=== PATIENT | female | born 1970 | race Caucasian/White ===

== ENCOUNTER 2025-03-28 10:58 | Emergency (ER) | payer OTHER, SELFPAY ==
[2025-03-28 11:06] VITALS: BP 118/84
[2025-03-28 11:15] VITALS: BMI 23.7
--- NOTE | 2025-03-28 11:18 | ED.GENMED ---
Addendum entered and electronically signed by Dario Rosenthal PA-C 03/31/25 06:22:
On cefdinir, appropriate per C&S
Original Note:
History of Present Illness
General
Chief Complaint: Abdominal Pain
Source: patient
Exam Limitations: none
Time Seen by Provider: 03/28/25 11:11
History of Present Illness
History of Present Illness:
54-year-old otherwise healthy female presents complaining of abdominal pain starting yesterday. The pain has been intermittent since yesterday. She feels as though in the mid abdomen with associated nausea without vomiting. The pain is severe to
the point where she has sweats and chills and near passing out. She has a prior surgical history including cholecystectomy and partial hysterectomy. She does not take any medications regularly. She is not allergic to any medication. She denies
any change in bowel movement. No urinary symptoms. No other complaints
Phy Exam
Physical Exam
Physical Exam:
General: Well-appearing female no acute respiratory distress
HEENT: Normal cephalic atraumatic
Heart: Regular rate and rhythm
Lungs: Clear no wheeze
Abdomen is soft tender to the left lower quadrant mostly on exam. No guarding nondistended
Extremities: No cyanosis
Course
Orders/Labs/Results
Orders:
Orders
03/28/25 11:18
CT Abd/pelvis W Iv Cont Urgent
Comment:
Reason For Exam: llq pain
03/28/25 11:19
Complete Blood Count/With Diff Urgent
Comprehensive Metabolic Panel Urgent
Lipase Urgent
03/28/25 11:58
Urinalysis Reflex To Culture Urgent
Date Specimen was Collected: 03/28/25
Time Specimen was Collected: 11:51
Urine Microscopic Reflex Cult Urgent
Urine Culture Urgent
YAMEL Source: U
Specimen Description:
Date Specimen was Collected: 03/28/25
Time Specimen was Collected: 11:51
Abnormal Lab Results
03/28/25 03/28/25
11:19 11:58
WBC 12.3 H 10^3/uL
(4.8-10.8)
Absolute Neuts (auto) 11.0 H 10^3/uL
(1.4-6.5)
Absolute Lymphs (auto) 0.7 L 10^3/uL
(1.2-3.4)
Neutrophils % 89.3 H %
(42.2-75.2)
Lymphocytes % 5.6 L %
(20.5-51.1)
BUN 22 H mg/dl
(7-17)
Glucose 122 H mg/dl
(70-99)
Ur Occult Blood Reflex 4+ A
(Negative)
Urine Nitrite (Reflex) Positive A
(Negative)
Leukocyte Esterase Rfl 3+ A
(Negative)
Urine Bacteria (Reflex) Many A
(Negative)
03/28/25 11:19
03/28/25 11:19
Vital Signs
Initial and Last Documented VS:
Initial Vital Signs
Temp Pulse Resp BP Pulse Ox
98.0 F 86 16 118/84 98
03/28/25 11:06 03/28/25 11:06 03/28/25 11:06 03/28/25 11:06 03/28/25 11:06
Last Documented Vital Signs
Temp Pulse Resp BP Pulse Ox
98.0 F 75 18 96/56 98
03/28/25 11:06 03/28/25 13:22 03/28/25 13:22 03/28/25 13:22 03/28/25 13:22
MDM/Problems Addressed
Differential Diagnosis Includes:
Patient with abdominal pain since yesterday has been intermittent on exam more tender to the left lower quadrant. Diverticulitis versus constipation versus renal colic versus colitis
Will check labs. CT of the abdomen pending. Offered pain medicine however she declined
*Pulse Oximetry
SaO2: 98
Oxygen Mode of Delivery: Room air
Patient hypoxic: no
*Critical Care Note
Total Time (30-74mins, 75-104mins- exclusive of procedures): Not Applicable
Update Note
Update Note:
CT negative for obvious acute finding. Appendix measures top range of normal at 6 mm in diameter. There is a moderate mount of stool in the ascending colon to suggest constipation. No other infectious process noted. Patient reexamined white
blood cell count is 12. Urinalysis nitrite positive with leukocytes question possible UTI. Will cover for UTI. Explained results of CAT scan the patient return precautions were given. No indication for admission. Stable for discharge
ED Attending Note
-
Portions of this chart may have been created with voice recognition software.� Occasional wrong word or��sound alike� substitutions may have occurred due to the inherent limitations of voice recognition software.
Discharge Plan
Departure
Patient Disposition: Home (Routine Discharge)
Date of Disposition: 03/28/25
Time of Disposition: 13:56
Patient with high blood pressure during this ER visit?: No
Discharge Problem:
Abdominal pain
Instructions: Urinary tract infection in adults - ED (DC), Abdominal Pain
Prescriptions:
New
cefdinir 300 mg capsule
300 mg PO BID Qty: 14 0RF
Referrals:
UNKNOWN - PT DOES,NOT KNOW [Family Provider]
Activity Restrictions/Additional Instructions:
Take antibiotic as directed. Drink plenty of fluids. You may use Tylenol for pain. Return if worse otherwise follow-up with your doctor
Interventions
Interventions:
*Risk Screen - Suicide Last Done: 03/28/25 11:06
*General Assessment Last Done: 03/28/25 11:34
*Neglect/Abuse Screening Last Done: 03/28/25 11:06
*ED- Fall Risk Assessment Last Done: 03/28/25 11:34
*ED COVID-19 Vaccine History Last Done: 03/28/25 11:34
*ED Influenza Vaccine History Last Done: 03/28/25 11:34
OQ-[id number] Assessment Last Done: 03/28/25 11:16
Discharge Date and Time
Print Language: MAORI
[2025-03-28 11:31] LABS: Hematocrit 40.6 % (37.0-47.0); Hemoglobin 13.6 g/dL (12.0-16.0); Mean Corp Hgb Conc. 33.5 g/dL (33.0-37.0); Mean Corpuscular Volume 88.6 fL (81.0-99.0); Nucleated Red Blood Cells % 0 %; Platelet Count 230 10^3/uL (130-400); Red Cell Dist. Width 12.5 % (11.5-14.5)
[2025-03-28 11:53] LABS: ALT (SGPT) 15 U/L (0-35); AST (SGOT) 25 U/L (14-36); Albumin 4.5 g/dl (3.5-5.0); Alkaline Phosphatase 86 U/L (38-126); Blood Urea Nitrogen 22 mg/dl (7-17); Calcium 9.0 mg/dl (8.4-10.2); Carbon Dioxide 30 mmol/L (22-30); Chloride 104 mmol/L (98-107); Estimated Creatinine Clearance 77 ml/min; Glucose 122 mg/dl (70-99); Lipase 85 U/L (23-300); Potassium 4.4 mmol/L (3.5-5.1); Sodium 139 mmol/L (135-145); Total Protein 7.1 g/dl (6.3-8.2); eGFR > 60.00
[2025-03-28 12:09] LABS: Urine Character Clear (Clear)
[2025-03-28 12:13] LABS: Urine Red Blood Cell 0-2 /HPF (0-2); Urine Squamous Cell 21-25 /LPF (Few)
[2025-03-28 13:22] VITALS: BP 96/56
== END 2025-03-28 14:06 | disposition home or self-care (01) ==
LOC: EMR 10:58
PROVIDERS: Physician Assistant; EMERGENCY PHYSICIAN Emergency Medicine
DX: R10.9 Unspecified abdominal pain (principal); Z90.711 Acquired absence of uterus with remaining cervical stump
CPT/HCPCS: 99284; 74177; 80053; 81003; 81015; 83690; 85025; 87077; 87086; 87186; Q9967

== ENCOUNTER 2025-04-18 06:23 | Day surgery (SDC) | payer OTHER, SELFPAY | END 2025-04-18 13:31 | disposition home or self-care (01) | LOC: GI 06:23 | PROVIDERS: ATTENDING PHYSICIAN Internal Medicine Gastroenterology | DX: Z12.11 Encounter for screening for malignant neoplasm of colon (principal); Q43.8 Other specified congenital malformations of intestine; K64.8 Other hemorrhoids | CPT/HCPCS: 45380; 88305 ==